=== PATIENT | female | born 1960 | race Hispanic/Latino ===

== ENCOUNTER 2018-05-13 06:05 | Day surgery (SDC) | payer BC ==
[2018-05-13] MEDS ORDERED: ECOTRIN PO NR (06:29)
[2018-05-13] MEDS ORDERED: NACL 0.9% 500 ML 500 ML IV SCH (07:00)
[2018-05-13] MEDS ORDERED: HEPARIN/NS 5000 UNIT/500ML(CATH LAB) 1,000 ML IR ONE (08:21)
[2018-05-13] MEDS ORDERED: VERSED ONE (08:21)
[2018-05-13] MEDS ORDERED: HEPARIN 10,000 UNITS/10 ML ONE (08:21)
[2018-05-13] MEDS ORDERED: XYLOCAINE 2% INFILTRATI ONE (08:22)
[2018-05-13] MEDS ORDERED: NITROGLYCERIN SYRINGE 3 ML ONE (08:22)
[2018-05-13] MEDS ORDERED: CALAN ONE (08:22)
[2018-05-13] MEDS: SUBLIMAZE ONE ×2 (09:26→09:32)
--- NOTE | 2018-05-13 10:35 | Cardiac Catherization Report ---
LEFT HEART CATHETERIZATION CLINICAL INFORMATION: This is a 57-year-old female with history of coronary artery disease based on calcium score of 400, hypertension, hyperlipidemia, had shortness of breath with exertion at times, had a stress test shows a small mild apical defect. He is here for a left heart catheterization. DESCRIPTION OF PROCEDURE: Left heart catheterization was done with moderate sedation, 1 mg Versed, 50 mcg of fentanyl. Total sedation time was 19 minutes, started at 9:26 a.m., finished at 9:45 a.m. FINDINGS: 1. Left heart catheterization performed in the right radial artery, sterile technique, local anesthesia, 6-Djiboutian radial sheath inserted. 2. Left system engaged with JL3.5 catheter. Left main is large and patent, bifurcates into large LAD, proximal is patent with moderate to severe tortuosity. Mid has a 20 mm with a smooth 50% stenosis. Distal is patent, moderate to severe tortuosity, wrapped around LAD. Small diagonal 1, 2, 3 are patent, less than 2 mm vessels. 3. Circumflex is a large caliber vessel that is patent from proximally and distally. OM1 and OM2 are medium caliber vessel, patent, moderate tortuosity. RCA engaged with JR4 catheter, it is a small caliber vessel with moderate to severe tortuosity, patent with mild luminal irregularities. PDA appears small caliber vessel, patent. LV gram done in RAMAKRISHNA and MEDRANO view shows normal LV function, LVEDP of 19 mmHg, LV is 118/19, aortic is 118/70. No gradient across the aortic valve on pullback. 5-Djiboutian catheters were taken over guidewire. The 6-Djiboutian radial sheath was discontinued. Radial band applied. No hematoma, no bleeding. SUMMARY: 1. Left main patent; LAD, moderate to large caliber vessel, moderate tortuosity of the mid 50% lesion, small diagonal, circumflex patent. OM1 and OM2 patent. RCA is small caliber, patent with moderate to severe tortuosity and mild luminal irregularities. 2. Normal LV function. 3. Nonobstructive coronary artery disease, treat medically. 4. Discussed in detail with the patient and the patient's family. [facility]# [id number] KAYLIN/NTS
--- NOTE | 2018-05-13 11:00 | Short Stay Summary ---
Short Stay Documentation Date of service: 05/13/18 - History H&P: obtained from office - Allergies and Medications Current Medications: Allergies No Known Allergies Allergy (Verified 05/13/18 06:28) Home Medications Medication Instructions Recorded Confirmed Last Taken Type Aspirin [Aspirin BABY CHEW TAB] 81 mg PO QDAY 05/13/18 05/13/18 05/12/18 History Citalopram Hydrobromide [Celexa] 40 mg PO QDAY 05/13/18 05/13/18 05/12/18 History Metoprolol Succinate [Toprol Xl] 25 mg PO QDAY 05/13/18 05/13/18 05/12/18 History Rosuvastatin (Nf) [Crestor] 20 mg PO QHS 05/13/18 05/13/18 05/12/18 History Telmisartan/Hydrochlorothiazid 1 tab PO QDAY 05/13/18 05/13/18 05/12/18 History [Telmisartan-Hctz 80-12.5 mg Tb] Active Medications Aspirin (Ecotrin) 325 mg PO ONCE NR Stop: 05/13/18 13:00 Last Admin: 05/13/18 07:07 Dose: 325 mg Documented by: Sodium Chloride (Nacl 0.9% 500 Ml) 500 mls @ 50 mls/hr IV DIRECT SALLY Stop: 05/13/18 16:59 Last Admin: 05/13/18 07:07 Dose: 50 mls/hr Documented by: - Brief post op/procedure progress note Date of procedure: 05/13/18 Pre-op diagnosis: sob Post-op diagnosis: same Procedure: see report Anesthesia: local Estimated blood loss: none Pathology: none - Disposition Condition at discharge: Good Disposition: [id number] TO HOME OR SELFCARE - Discharge Diagnoses (1) CAD (coronary artery disease) Status: Acute Qualifiers: Coronary Disease-Associated Artery/Lesion type: [place] artery Andre[place] vs. transplanted heart: [place] heart Associated angina: with stable angina Qualified Code(s): I25.118 - Atherosclerotic heart disease of [place]' coronary artery with other forms of angina pectoris (2) Hypertension Status: Chronic Qualifiers: Hypertension type: essential hypertension Qualified Code(s): I10 - Essential (primary) hypertension (3) Hyperlipemia, mixed Status: Chronic Short Stay Discharge Plan Activity: advance as tolerated Diet: low fat, low cholesterol Wound: keep clean and dry (sleep apnea was) Follow up with: LAUREANO MENDIOLA MD [Primary Care Provider] - 7 Days Forms: CardCath PCI D/C Instructions
[2018-05-13 12:46] VITALS: BP 139/88
== END 2018-05-13 13:00 | disposition home or self-care (01) ==
LOC: CATHLABREC 06:05
PROVIDERS: ATTEND Internal Medicine
DX: I25.10 Atherosclerotic heart disease of native coronary artery without angina pectoris (principal); E78.5 Hyperlipidemia, unspecified; I10 Essential (primary) hypertension; E78.2 Mixed hyperlipidemia; E78.00 Pure hypercholesterolemia, unspecified; F32.9 Major depressive disorder, single episode, unspecified; Z79.82 Long term (current) use of aspirin; Z79.899 Other long term (current) drug therapy; Z98.890 Other specified postprocedural states; Z85.89 Personal history of malignant neoplasm of other organs and systems
CPT/HCPCS: 93005; 93010; 93458; 99156; C1894; J1644; J2250; J3010; J7040; Q9967